=== PATIENT | female | born 1990 | race Caucasian/White ===

== ENCOUNTER 2021-04-19 13:46 | Day surgery (SDC) | payer OTHER ==
[2021-04-19 14:57] VITALS: BMI 30.5
[2021-04-19] MEDS ORDERED: Lactated Ringer's 1,000 ML IV SCH (15:15)
[2021-04-19] MEDS ORDERED: Promethazine HCl 25 MG in Sodium Chloride 0.9% 50 ML IVPB PRN (15:18)
[2021-04-19] MEDS ORDERED: Butorphanol Tartrate 1 MG/ML VIAL SLOW IVP PRN (16:40)
[2021-04-19] MEDS ORDERED: Butorphanol Tartrate 1 MG/ML VIAL ONE (16:47)
== END 2021-04-19 18:42 | disposition home health service, planned readmission (86) ==
LOC: CSHLD/OP 13:46
PROVIDERS: ATTEND Student in an Organized Health Care Education/Training Program
DX: O47.03 False labor before 37 completed weeks of gestation, third trimester (principal); O34.211 Maternal care for low transverse scar from previous cesarean delivery; O34.03 Maternal care for unspecified congenital malformation of uterus, third trimester; Q51.28 Other and unspecified doubling of uterus; Z3A.35 35 weeks gestation of pregnancy; Z88.0 Allergy status to penicillin; Z91.040 Latex allergy status
CPT/HCPCS: 96360; 96361; 96374; 99282; J0595; J2550

== ENCOUNTER 2021-05-07 17:50 | Day surgery (SDC) | payer OTHER ==
[2021-05-07 18:22] VITALS: BMI 31.3
[2021-05-07] MEDS ORDERED: Lactated Ringer's 1,000 ML IV SCH (19:00)
== END 2021-05-07 20:42 | disposition home or self-care (01) ==
LOC: CSHLD/OP 17:50
PROVIDERS: ATTEND Student in an Organized Health Care Education/Training Program
DX: O36.8130 Decreased fetal movements, third trimester, not applicable or unspecified (principal); O47.1 False labor at or after 37 completed weeks of gestation; O34.211 Maternal care for low transverse scar from previous cesarean delivery; O34.03 Maternal care for unspecified congenital malformation of uterus, third trimester; N85.8 Other specified noninflammatory disorders of uterus; Q51.28 Other and unspecified doubling of uterus; Z3A.38 38 weeks gestation of pregnancy; Z87.59 Personal history of other complications of pregnancy, childbirth and the puerperium; Z79.899 Other long term (current) drug therapy; Z88.0 Allergy status to penicillin; Z91.040 Latex allergy status
CPT/HCPCS: 96360; 99282

== ENCOUNTER 2021-05-11 14:01 | Outpatient (CLI) | payer OTHER ==
[2021-05-12 01:31] LABS: SARS-CoV-2 PCR by NAA Not Detected (NotDetected)
== END 2021-05-11 14:02 | disposition home or self-care (01) ==
LOC: CSHLAB 14:01
PROVIDERS: ATTEND Student in an Organized Health Care Education/Training Program
DX: Z20.822 Contact with and (suspected) exposure to COVID-19 (principal)
CPT/HCPCS: U0003; U0005

== ENCOUNTER 2021-05-13 05:32 | Inpatient (IN) | payer OTHER ==
[2021-05-13] MEDS ORDERED: Famotidine/PF 20 mg/2ml Vial SLOW IVP PRN (06:14)
[2021-05-13] MEDS ORDERED: Bicitra 30 ML UDCUP PO PRN (06:14)
[2021-05-13] MEDS ORDERED: Ondansetron PF 4 MG/2 ML Vial IVP PRN ×3 (06:14→10:19)
[2021-05-13] MEDS ORDERED: Lactated Ringer's 1,000 ML IV SCH (06:14)
[2021-05-13] MEDS ORDERED: hydrALAZINE 20 MG/ML VIAL SLOW IVP PRN ×2 (06:14→10:19)
[2021-05-13] MEDS ORDERED: CEFAZOLIN 2 GM in Premix Bag 1 BAG IVPB SCH (06:14)
[2021-05-13] MEDS ORDERED: Promethazine HCl 25 MG/ML VIAL IM PRN ×2 (06:14→08:59)
[2021-05-13 06:16] VITALS: BMI 31.1
[2021-05-13] MEDS ORDERED: ePHEDrine Sulfate 50 MG/10 ML VIAL ONE (06:54)
[2021-05-13] MEDS ORDERED: Ondansetron PF 4 MG/2 ML Vial ONE (06:55)
[2021-05-13] MEDS ORDERED: Dexamethasone 4 mg/ml Vial ONE (06:55)
[2021-05-13] MEDS ORDERED: Phenylephrine 40 MG/NS 250 ML 0 ML ONE (06:55)
[2021-05-13] MEDS ORDERED: Oxytocin 10 UNITS/ML VIAL ONE (06:55)
[2021-05-13] MEDS ORDERED: Ketorolac Tromethamine 30 MG/ML VIAL ONE (06:56)
[2021-05-13] MEDS ORDERED: Phenylephrine 40 MG/NS 250 ML 250 ML ONE (06:58)
[2021-05-13] MEDS ORDERED: Morphine PF 10 MG/10 ML VIAL ONE (06:59)
[2021-05-13 07:10] LABS: Hemoglobin 12.8 g/dL (12.0-15.5); Mean Corpuscular HGB CONC 34.5 g/dL (32.0-36.0); Mean Corpuscular Hemoglobin 31.1 pg (27.0-33.0); Mean Corpuscular Volume 90.3 fl (81.6-98.3); Mean Platelet Volume 10.2 fl (7.4-10.4); Platelet Count 129 10x3/uL (150-450); RBC Distribution Width 13.3 % (11.5-14.5); Red Blood Cell (RBC) Count 4.11 10x6/uL (3.90-5.03); White Blood Cell (WBC) Count 10.1 10x3/uL (3.5-10.5)
[2021-05-13] MEDS ORDERED: Clindamycin/D5W 900 mg/50 ml Premix Bag ONE (07:35)
[2021-05-13] MEDS ORDERED: Gentamicin Sulfate 120 MG in Premix Bag 1 BAG IVPB SCH (07:45)
[2021-05-13] MEDS ORDERED: Clindamycin/D5W 900 MG in Premix Bag 1 BAG IVPB SCH (07:45)
[2021-05-13 07:52] LABS: Hep B Surf Ag Non-Reactive S/CO (NonReactive)
[2021-05-13 08:45] LABS: HBSAg Index 0.17 S/CO (0-0.99)
[2021-05-13] MEDS ORDERED: Meperidine HCl/PF 25 MG/ML VIAL SLOW IVP PRN (08:59)
[2021-05-13] MEDS ORDERED: Naloxone HCl 0.4 mg/ml Vial IVP PRN ×2 (08:59)
[2021-05-13] MEDS ORDERED: Ketorolac Tromethamine 30 MG/ML VIAL IVP PRN (08:59)
[2021-05-13] MEDS ORDERED: Hydrocerin (Eucerin) Cream 120 gm Jar TOP PRN (08:59)
[2021-05-13] MEDS ORDERED: Fentanyl 100 MCG/2 ML VIAL SLOW IVP PRN (08:59)
[2021-05-13] MEDS ORDERED: Ondansetron HCl/PF 4 MG/2 ML Vial IVP PRN (08:59)
[2021-05-13] MEDS ORDERED: Naloxone HCl 0.4 mg/ml Vial IV PRN (08:59)
[2021-05-13] MEDS ORDERED: Promethazine HCl 25 MG SUPP PR PRN (08:59)
[2021-05-13] MEDS ORDERED: Communication Order-Pharmacy FS SCH (09:00)
[2021-05-13] MEDS ORDERED: Ketorolac Tromethamine 30 MG/ML VIAL IVP SCH (09:00)
[2021-05-13 09:24] LABS: Syphilis Antibody Nonreactive (Nonreactive); Syphilis Antibody Index 0.03 S/CO (<1.00 Non-Reactive)
[2021-05-13] MEDS ORDERED: diphenhydrAMINE 25 MG CAP PO PRN (10:19)
[2021-05-13] MEDS ORDERED: Bisacodyl 10 MG SUPP PR PRN (10:19)
[2021-05-13] MEDS ORDERED: Boostrix 0.5 ML (Tdap) VIAL IM ONE (10:19)
[2021-05-13] MEDS ORDERED: Simethicone Chewable 80 MG TAB PO PRN (10:19)
[2021-05-13] MEDS ORDERED: Acetaminophen 325 MG TAB PO PRN (10:19)
[2021-05-13] MEDS ORDERED: Docusate Calcium (SURFAK) 240 MG CAP PO SCH (10:30)
[2021-05-13] MEDS ORDERED: Ferrous Sulfate 325 MG TAB PO SCH (10:45)
[2021-05-13] MEDS: diphenhydrAMINE 50 MG/ML VIAL IVP PRN ×2 (11:25→16:16)
[2021-05-13] MEDS ORDERED: HYDROcodone/Acetaminophen 5/325 mg Tablet PO PRN (21:00)
[2021-05-14] MEDS: HYDROcodone/Acetaminophen 5/325 mg Tablet PO PRN ×3 (05:21→16:23)
[2021-05-14] MEDS: Ferrous Sulfate 325 MG TAB PO SCH ×3 (05:23→21:16)
[2021-05-14] MEDS: Docusate Calcium (SURFAK) 240 MG CAP PO SCH ×3 (05:23→21:18)
[2021-05-14] MEDS: Ibuprofen 800 MG TAB PO SCH ×3 (05:23→21:19)
[2021-05-14 06:21] LABS: Hemoglobin 10.8 g/dL (12.0-15.5); Mean Corpuscular HGB CONC 34.3 g/dL (32.0-36.0); Mean Corpuscular Hemoglobin 31.8 pg (27.0-33.0); Mean Corpuscular Volume 92.6 fl (81.6-98.3); Mean Platelet Volume 10.3 fl (7.4-10.4); Platelet Count 116 10x3/uL (150-450); RBC Distribution Width 13.2 % (11.5-14.5); White Blood Cell (WBC) Count 10.9 10x3/uL (3.5-10.5)
[2021-05-15] MEDS: HYDROcodone/Acetaminophen 5/325 mg Tablet PO PRN ×2 (00:50→10:48)
[2021-05-15] MEDS: Ibuprofen 800 MG TAB PO SCH ×3 (05:11→22:51)
[2021-05-15] MEDS: Ferrous Sulfate 325 MG TAB PO SCH ×2 (08:45→22:52)
[2021-05-15] MEDS: Docusate Calcium (SURFAK) 240 MG CAP PO SCH ×2 (08:45→22:51)
[2021-05-16] MEDS: Ibuprofen 800 MG TAB PO SCH ×2 (06:34→13:59)
[2021-05-16] MEDS: Docusate Calcium (SURFAK) 240 MG CAP PO SCH (08:22)
[2021-05-16] MEDS: Ferrous Sulfate 325 MG TAB PO SCH (08:24)
[2021-05-16 15:58] VITALS: BP 122/82; TEMP 98.5
== END 2021-05-16 14:15 | disposition home or self-care (01) | DRG 787 ==
LOC: CSHLD 05:32 → CSHPP 10:50
PROVIDERS: ADMIT Student in an Organized Health Care Education/Training Program; ATTEND Student in an Organized Health Care Education/Training Program
PROC: 10D00Z1 Extraction of Products of Conception, Low, Open Approach (ICD-10-PCS; principal; 2021-05-13)
PROC: 0UB10ZZ Excision of Left Ovary, Open Approach (ICD-10-PCS; 2021-05-13)
DX: O34.211 Maternal care for low transverse scar from previous cesarean delivery (principal); D62 Acute posthemorrhagic anemia; O99.62 Diseases of the digestive system complicating childbirth; O34.83 Maternal care for other abnormalities of pelvic organs, third trimester; N83.202 Unspecified ovarian cyst, left side; O77.0 Labor and delivery complicated by meconium in amniotic fluid; O99.02 Anemia complicating childbirth; K66.0 Peritoneal adhesions (postprocedural) (postinfection); Z3A.39 39 weeks gestation of pregnancy; Z37.0 Single live birth
CPT/HCPCS: 36415; 51702; 85027; 86780; 86850; 86900; 86901; 87340; 88305; J1100; J1200; J1885; J2274; J2405; J2590; J3490; J7120